=== PATIENT | male | born 1935 | race Caucasian/White ===

== ENCOUNTER → 2020-10-09 | Outpatient (CLI) | payer OTHER ==
[~2020-10-09] VITALS: Ht 177.8 cm; Wt 81.6 kg
[~2020-10-09] MED LIST: ASA81BEC PO; BETIMOL5 ML OPHTHALMIC; FLOMAX0.4 MG PO; LISINOPRIL10 MG PO; PROSCAR 5MG TABL5 MG PO
[2020-10-09 08:08] VITALS: BP 164/87
[2020-10-09 08:46] LABS: ABSOLUTE NEUTROPHILS 4.4 thou/uL (1.4-8.2); BASOPHILS 1.2 % (0.0-2.0); EOSINOPHILS 1.2 % (0.0-3.0); HEMATOCRIT 44.6 % (42.0-52.0); HEMOGLOBIN 14.7 gm/dL (14.0-18.0); LYMPHOCYTES 25.7 % (24.0-44.0); MCH 31.6 pg (26.0-34.0); MCHC 32.9 g/dL (28.0-37.0); MONOCYTES 9.2 % (1.0-8.0); PLATELET COUNT 242 thou/uL (150-400); POLYS 62.7 % (36.0-66.0); RBC 4.64 mil/uL (4.50-6.00); RDW 14.4 % (10.5-14.5); WBC 7.1 thou/uL (4.0-11.0)
[2020-10-09 08:56] LABS: CALCIUM 9.5 mg/dL (8.5-10.1); CREATININE 1.4 mg/dL (0.7-1.3); POTASSIUM 3.9 mmol/L (3.5-5.1)
[2020-10-09 09:02] LABS: ALBUMIN 3.8 g/dL (3.4-5.0); TOTAL BILIRUBIN 0.5 mg/dL (0.2-1.0); TOTAL PROTEIN 7.3 g/dL (6.4-8.2)
[2020-10-09 09:09] LABS: APTT 24.6 Seconds (24.5-32.8); PROTIME 9.9 Seconds (9.3-11.4)
--- NOTE | 2020-10-09 14:23 | EKG ---
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[facility] : 1935 Requested By: Shade Hua Order Number: [id number] : Duke Armenta Measurements Intervals [place] Rate: 60 P: -37 CO: 159 QRS: -73 QRSD: 157 T: 91 QT: 439 QTc: 439 Interpretive Statements Atrial-ventricular dual-paced rhythm No further analysis attempted due to paced rhythm No previous ECG available for comparison Electronically Signed On 10-09-2020 14:23:35 CDT by Duke Armenta [email or web address] <ELECTRONICALLY SIGNED> By: Duke Armenta MD, [facility] 10/09/20 1423 0824 3 Duke Armenta MD, FACC /EPI
--- NOTE | 2020-10-09 14:23 | EKG ---
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[facility] : 1935 Requested By: Tej Aguilar Order Number: [id number] MD: Duke Armenta Measurements Intervals [place] Rate: 63 P: -20 SD: 153 QRS: -72 QRSD: 157 T: 88 QT: 440 QTc: 451 Interpretive Statements Atrial-ventricular dual-paced complexes No further analysis attempted due to paced rhythm Compared to ECG 10/09/2020 08:24:35 No significant changes Electronically Signed On 10-09-2020 14:23:36 CDT by Duke Armenta [email or web address] <ELECTRONICALLY SIGNED> By: Duke Armenta MD, [facility] 10/09/20 1423 1020 1020 Duke Armenta MD, FAC /EPI
[2020-10-09 14:58] LABS: URINE BILIRUBIN NEGATIVE (Negative); URINE BLOOD NEGATIVE (Negative); URINE CLARITY CLEAR; URINE COLOR YELLOW; URINE GLUCOSE-RANDOM* NEGATIVE (Negative); URINE KETONES NEGATIVE (Negative); URINE LEUKOCYTES-REFLEX NEGATIVE (Negative); URINE NITRITE-REFLEX NEGATIVE (Negative); URINE PROTEIN (DIPSTICK) NEGATIVE (Negative); URINE SPECIFIC GRAVITY 1.015 (1.005-1.035); URINE UROBILINOGEN 0.2 E.U./dl (0.2-1.0)
== END | disposition home or self-care (01) ==
LOC: CATH 07:31
PROVIDERS: Physician Assistant; ATTEND Nuclear Medicine Nuclear Cardiology
DX: I71.4 Abdominal aortic aneurysm, without rupture (principal); I70.1 Atherosclerosis of renal artery; I10 Essential (primary) hypertension; E78.5 Hyperlipidemia, unspecified; I25.10 Atherosclerotic heart disease of native coronary artery without angina pectoris; F17.210 Nicotine dependence, cigarettes, uncomplicated; Z98.890 Other specified postprocedural states; Z79.899 Other long term (current) drug therapy; Z95.0 Presence of cardiac pacemaker

== ENCOUNTER → 2020-10-20 | Outpatient (CLI) | payer OTHER ==
[~2020-10-20] MED LIST changes: +PROSCAR 5MG TABL5 M1 PO
== END ==
LOC: LAB 11:17
PROVIDERS: ATTEND Surgery Vascular Surgery
DX: Z01.812 Encounter for preprocedural laboratory examination (principal); Z20.822 Contact with and (suspected) exposure to COVID-19

== ENCOUNTER 2020-10-23 08:14 | Inpatient (IN) | payer OTHER ==
[~2020-10-23] VITALS: Ht 152.4 cm; Wt 81.6 kg
--- NOTE | ~2020-10-23 | HC ---
[facility] [place] [address] CONSULTATION Name: BERMEOSAVANNAH Room #: 215-P ADM IN M.R.#: [id number] Admission: 10/23/20 Attend Phys: Benjie Faulkner MD Discharge: Date of : 36 Report #: [id number] THIS REPORT FOR: cc: Ernesto Quinones MD, Khanh MD Khosla,Gordon Powers MD ~ DATE OF SERVICE: 10/27/2020 HISTORY OF PRESENT ILLNESS: This is an 85-year-old who is unable to provide any history. The patient tried to talk, but his speech is barely understandable. I talked to the nurse looking after this patient and reviewed the records in the computer. It looks like this patient has abdominal aorta surgery, but he is not doing well. He had elevated creatinine when he came in and looks like he was encephalopathic even that time. He does have some other metabolic problems like sodium of 148. REVIEW OF SYSTEMS: A 14-point review of system was carried out in this patient. He has a history of coronary artery disease. He has a permanent pacemaker as I understand from the nurses. The pacemaker is MRI compatible and they are trying to arrange an MRI in this patient. He is very delirious and multiple medications has been used in this patient. That was his 14-point review of system, which was relevant from the record. PAST MEDICAL HISTORY: Positive for abdominal aneurysm. FAMILY HISTORY: Unavailable. SOCIAL HISTORY: Also unavailable and we will try to reach the family to see if we can get some history from them. PHYSICAL EXAMINATION: Limited. The patient tried to say something, but his voice is not very easily understandable. It looks like he can move all 4 extremities, but very difficult to tell. I cannot do the sensory examination, there does not appear to be any meningeal sign. He does not appear to be in much respiratory difficulty. He is moderately built individual. I think he can hear, but I cannot tell anything more. Blood pressure is 139/79, respirations ____, pulse is 70, temperature is 98.3. LABORATORY DATA: His white count is somewhat high at 11.1. He did have a CT scan, which does not show any acute changes. IMPRESSION: This patient has a severe delirium. I need some more history and I will try to find from the family tomorrow. This patient has a pacemaker. I do not know whether he has any history suggestive of memory problem before and I will try to reach the family. Similarly, I will also try to get any history [facility] [address] [place] [address] CONSULTATION Name: JEAN-CLAUDESAVANNAH Sherman Room #: 215-P [facility] IN M.R.#: [id number] Admission: 10/23/20 Attend Phys: Benjie Faulkner MD Discharge: Date of : 36 Report #: [id number] about alcohol intake. I will check TSH and vitamin B12. We will talk to you tomorrow to see if MRI can be done that will give us more answers. By: 2114 2256 Gordon Martinez MD /nt
[2020-10-23 11:05] VITALS: BP 141/78
--- NOTE | 2020-10-23 19:15 | NUR ---
ASSUMED CARE AT
--- NOTE | 2020-10-23 19:18 | NUR ---
ASSUMED CARE AT 1730, ASSESSMENT AND VITAL SIGNS COMPLETED PER ICU PROTOCOL. PT ARRIVED FROM POST OP BY RNX2. PT SETTLED IN RM 249 IN ICU. RN WILL CONTINUE TO MONITOR.
[2020-10-24] VITALS (31 sets, daily range): BP systolic 90–147; BP diastolic 45–104
[2020-10-24 06:08] LABS: HEMATOCRIT 39.3 % (42.0-52.0); HEMOGLOBIN 12.8 gm/dL (14.0-18.0); MCH 31.2 pg (26.0-34.0); MCHC 32.5 g/dL (28.0-37.0); MCV 96.1 fL (80.0-100.0); RBC 4.09 mil/uL (4.50-6.00); RDW 13.5 % (10.5-14.5); WBC 10.9 thou/uL (4.0-11.0)
[2020-10-24 06:36] LABS: CALCIUM 8.2 mg/dL (8.5-10.1); CREATININE 1.2 mg/dL (0.7-1.3); POTASSIUM 4.4 mmol/L (3.5-5.1)
--- NOTE | 2020-10-24 07:19 | NUR ---
SEE Mysterio FOR ASSESSMENT.PT WAS PLEASANTLY CONFUSED DURING THE NOC, THIS AM SUDDENLY BECAME AGITATED, TRYING TO GET OUT OF BED. NO REDIRECTING. NOTIFIED DR OCHOA. HALDOL IV GIVEN.
[2020-10-24 09:58] LABS: BE(vivo) -4.4 mmol/L (-2 to +3); HCO3 18.5 mmol/L (22.0-26.0); PCO2 28.6 mmHg (35.0-45.0); PO2 68.7 mmHg (80.0-100.0); pH 7.429 (7.360-7.450); sO2 94.5 % (92.0-98.0)
--- NOTE | 2020-10-24 17:57 | NUR ---
SKIPPED ACCUCHECK DUE TO PT RESTING.
--- NOTE | 2020-10-24 18:03 | NUR ---
PT IS NOT PROGRESSING TOWARDS GOALS. VERY ANXIOUS. NOT PERFORMING ADLS. PAIN UNDER CONTROL. WILL CONTINUE TO MONITOR.
--- NOTE | 2020-10-24 20:00 | NUR ---
ASSESSMENT COMPLETED HE ANSWERS TO HI NAME AND STATES HE IS IN THE hOSPITAL. STILL TRYING TO GET OUT OF THE BED. sITTER AT THE BEDSIDE FOR NOW. VSS. WILL CONT TO MONITOR.
--- NOTE | 2020-10-24 20:00 | NUR ---
Assessment completed pt requesting something for p[ain in both groin areas sites are without hematoma's dressing dry and intact. Pain medication given. will cont. to monitor.
--- NOTE | 2020-10-25 | NUR ---
PT much more calmer but still tries to get out of the bed. He does sleep at times. both groin areas dry and intact. vss. Will cont to monitor.
--- NOTE | 2020-10-25 | NUR ---
Noted monitor shows SB pt sleeping. Pt did awaken earlier coing of his rt hand fingers being numb, neuro assessment done, no changes noted.vss will cont to monitor.
[2020-10-25 00:02] VITALS: BP 99/66
--- NOTE | 2020-10-25 03:27 | NUR ---
Report given to oncoming RN.
--- NOTE | 2020-10-25 08:17 | O ---
[facility] [place] [address] OPERATIVE REPORT Name: SAVANNAH BERMEO Room #: 243-P ADM IN M.R.#: [id number] Admission: 10/23/20 Attend Phys: Benjie Faulkner MD Discharge: Date of : 36 Report #: [id number] THIS REPORT FOR: cc: Ernesto Quinones MD, Khanh MD Forman,Benjie Valadez MD ~ DATE OF SERVICE: 10/23/2020 PREOPERATIVE DIAGNOSIS: Abdominal aortic aneurysm. POSTOPERATIVE DIAGNOSIS: Abdominal aortic aneurysm. OPERATION: Stent graft implant for abdominal aortic aneurysm with intraoperative arteriography and angioplasty. SURGEON: Dr. Benjie Faulkner and Dr. Shade Hua. TELETYPEWRITER OPERATOR: JASMIN Casarez. ANESTHESIA: General. INDICATIONS: The patient is an 85-year-old with a large abdominal aortic aneurysm. The patient has anatomy suitable for stent graft implant. FINDINGS AND TECHNIQUE: After general anesthesia was established, incisions were made in both groins to expose the common femoral arteries. A 10,000 units of heparin were given. On each side, Amplatz needle was used followed by guidewire and 18-Botswanan introducer. Through the introducer and over the wire, an exchange catheter was placed and an Amplatz wire was placed on each side. Through the left side, the 12-Botswanan sheath was placed through a femoral cutdown and through the right side the 18-Botswanan sheath was placed through femoral artery cutdown. Through the main body, selected was a 28 x 14 x 16 device. This was placed up the right side. Through the left side, the visceral catheter was used to identify the lowest, the left, renal artery and Storq wire was used to gain better access and the guide catheter was placed at the origin of the renal artery. This allowed us to position the main body accurately just below the origin of the lowest renal artery. The main body was opened with the contralateral gate anteriorly. Contralateral gate was accessed and then our position within the main body was ascertained by [facility] [address] [place] [address] OPERATIVE REPORT Name: SAVANNAH BERMEO Room #: 243-P [facility] IN M.R.#: [id number] Admission: 10/23/20 Attend Phys: Benjie Faulkner MD Discharge: Date of : 36 Report #: [id number] placing a pigtail catheter using the spin technique. The pigtail catheter was a marked catheter and this was used with the information gained from sheath arteriogram on the left side, identified the left hypogastric artery. This allowed us to select an 18 mm x 14 iliac component. This was placed satisfactorily in the main gate and ending just above the hypogastric artery takeoff on the left. The remainder of the main body was deployed into the right iliac. When both devices had been deployed, the compliant balloon was placed up first to the left side, then on the right side to fully deploy the devices and set the proximal active fixation. There had been some sense that there was a narrowing in the proximal left common iliac and indeed the graft appeared to be a bit narrow at that point and an angioplasty was done using a 12 x 2 balloon of the left common iliac within the graft. With all of the devices fully deployed and the angioplasty complete, final arteriogram was taken and this showed good position of the graft with no evidence of any leak. Satisfied with the graft position, the dilators were replaced into the sheaths. Sheaths and dilators were removed and then the stiff wires were removed on each side. The femoral cutdown was repaired with interrupted 4-0 Prolene. Flow was reestablished with return of good distal pulses. Protamine was given to reverse the heparin. When hemostasis was satisfactory, the groin wounds were closed in layers and the patient was taken to the recovery area in good condition. All counts reported as correct. <ELECTRONICALLY SIGNED> By: Benjie Faulkner MD 10/25/20 0817 [id number] 0807 Benjie Faulkner MD /nt
[2020-10-25 12:45] VITALS: BP 129/43
[2020-10-25 15:15] VITALS: BP 138/66
--- NOTE | 2020-10-25 18:24 | NUR ---
PT NOT PROGRESSING TOWARDS GOALS.
[2020-10-25 20:15] VITALS: BP 164/97
[2020-10-26 04:45] VITALS: BP 159/86
[2020-10-26 05:03] LABS: HEMOGLOBIN 12.2 gm/dL (14.0-18.0); MCH 31.4 pg (26.0-34.0); MCV 94.9 fL (80.0-100.0); RBC 3.9 mil/uL (4.50-6.00); RDW 13.8 % (10.5-14.5); WBC 11.1 thou/uL (4.0-11.0)
[2020-10-26 05:13] LABS: ALBUMIN 2.7 g/dL (3.4-5.0); CALCIUM 8.6 mg/dL (8.5-10.1); POTASSIUM 3.6 mmol/L (3.5-5.1); TOTAL BILIRUBIN 0.6 mg/dL (0.2-1.0)
[2020-10-26 05:18] LABS: CREATININE 2.6 mg/dL (0.7-1.3)
--- NOTE | 2020-10-26 07:41 | NUR ---
PATIENTS CARES WERE ASSUMED AT SHIFT CHANGE. PATIENT WAS ASSESSED AND MEDS WERE PASSED. PATIENT IS N RESTRAINTS. PATIENTWAS PLACED IN A CONDOM CATH FOR COMFORT DUE TO HIS INCONTINENT. ROUNDS WERE MADE. THE BED ALARM IS ON.
[2020-10-26 08:00] VITALS: BP 157/76
--- NOTE | 2020-10-26 08:53 | NUR ---
ASSUMED PT CARE AT 0700. PT REMAINS ALTERED REQUIRING RETRAINTS DUE TO PULLING OFF MEDICAL EQUIPMENT AND INTERFERRING WITH MEDICAL TREATMENT. PT IS AXO TO SELF. ASSESSMENT PERFORMED CHARTED. VSS. WILL CONTINUE TO MONITOR AND FOLLOW POC.
--- NOTE | 2020-10-26 10:49 | NUR ---
PT/OT ATTEMPTING TO WORK WITH PATIENT. PT OPENS EYES TO VOICE. PT UNABLE TO FOLLOW COMMANDS OF PT/OT.
--- NOTE | 2020-10-26 11:56 | NUR ---
PT TURNED WITH ORAL CARE PROVIDED. ASSESSMENT PERFORMED CHARTED. VSS. PT REMAINS ALERT TO SELF ONLY AND UNABLE TO FOLLOW COMMANDS. WILL CONTINUE TO MONITOR AND FOLLOW POC.
[2020-10-26 12:00] VITALS: BP 148/82
--- NOTE | 2020-10-26 16:32 | NUR ---
PT RESTING, PT REMAINS NOT FOLLOWING COMMANDS. ALERT TO SELF ONLY. PT REPOSITIONED, ORAL CARE PROVIDED. VSS. WILL CONTINUE TO MONITOR AND FOLLOW POC.
--- NOTE | 2020-10-26 16:39 | NUR ---
patient had AAA and possible delirum. Patient orientated to self. Sp with dtr. Patient resides at home with dtr. She reports all needs on one level. patient uses a cane for ambulation. Patient rec HH from [facility] [employer] [facility]. Dtr works during day and reports patient watches TV or sleeps most of the day. He microwaves meals. Plan to update [facility]. Casemgt following.
[2020-10-26 17:56] LABS: URINE BILIRUBIN NEGATIVE (Negative); URINE BLOOD 2+ (Negative); URINE CLARITY CLEAR; URINE COLOR YELLOW; URINE GLUCOSE-RANDOM* NEGATIVE (Negative); URINE KETONES NEGATIVE (Negative); URINE LEUKOCYTES NEGATIVE (Negative); URINE NITRITE NEGATIVE (Negative); URINE PROTEIN (DIPSTICK) NEGATIVE (Negative); URINE UROBILINOGEN 0.2 E.U./dl (0.2-1.0)
[2020-10-26 18:02] LABS: PROT/CREAT RATIO 0.2; URINE PROTEIN-RANDOM* 27.2 mg/dL (<11.9)
[2020-10-26 18:04] LABS: BACTERIA None Seen /HPF (None Seen); CRYSTALS None Seen /LPF (None Seen); SQUAMOUS None Seen /LPF (0-3); URINE RBC 0-2 Rare /HPF (0-2); URINE WBC None Seen /HPF (0-5)
[2020-10-26 20:09] VITALS: BP 164/79
[2020-10-27 04:56] VITALS: BP 163/89
[2020-10-27 05:16] LABS: ALBUMIN 2.5 g/dL (3.4-5.0); ANION GAP 15 mmol/L (7-16); BUN 25 mg/dL (7-18); CALCIUM 8.3 mg/dL (8.5-10.1); CHLORIDE 114 mmol/L (98-107); CO2 19 mmol/L (21-32); GLUCOSE 88 mg/dL (74-106); MAGNESIUM 1.9 mg/dL (1.8-2.4); PHOSPHORUS 2.6 mg/dL (2.5-4.9); POTASSIUM 3.6 mmol/L (3.5-5.1); SODIUM 148 mmol/L (136-145); TROPONIN-I <0.06 ng/mL (<0.06)
--- NOTE | 2020-10-27 05:34 | NUR ---
PATIENTS CARES WERE ASSUMED AT SHIFT CHANGE. PATIENT WAS ASSESSED AND MEDS WERE PASSED. PATIENT CONTINUES TO BE ALERT ONLY TO HIMSELF. HE WILL DISPLAY EPISODES OF ANXIETY FROM TIME TO TIME, A NEW IV STARTED THIS SHIFT IN THE RIGHT HAND 22g. ROUNDS WERE DONE . THE BED ALARM HAS BEEN ON ALL THIS SHIFT.
[2020-10-27 08:00] VITALS: BP 145/65
--- NOTE | 2020-10-27 09:15 | NUR ---
PT LETHARGIC THIS AM, SLURRED AND INCOMPREHENSIBLE SOUNDS. PT NOTED WITH LEFT SIDED WEAKNESS, UNABLE TO DRINK OUT OF A STRAW. PT RESTRAINTS REMOVED AT THIS TIME AND TURNED. ORAL CARE PROVIDED AND MD NOTIFIED OF COGNITIVE CHANGES. SPEECH AND NEURO EVALED. WILL CONT TO MONITOR
[2020-10-27 11:54] VITALS: BP 153/79
--- NOTE | 2020-10-27 13:00 | NUR ---
PT MORE ALERT THIS AFTERNOON, STILL DROWSY BUT ABLE TO UNDERSTAND SOME COMMUNICATION. PT TRYING TO GET OUT OF BED AND PULL OFF LEADS. REDIRECTED AND TOILETED, PT RESTING IN BED. WILL CONT TO MONITOR
[2020-10-27 16:00] VITALS: BP 170/79
--- NOTE | 2020-10-27 17:55 | NUR ---
PT MORE ALERT THIS EVENING ABLE TO COMPREHEND WHAT PT IS SAYING IN CONVERSATIONS, LEFT SIDED WEAKNESS HAS IMPROVED, PT ABLE TO SWALLOW WELL AND GAG REFLEX PRESENT. DINNER ATE WITH NURSE ASSIST. PT IS SITTING IN BED AT THIS TIME WATCHING TV.
[2020-10-27 19:38] VITALS: BP 139/79
[2020-10-28 03:39] VITALS: BP 164/79
[2020-10-28 06:06] LABS: ALBUMIN 2.4 g/dL (3.4-5.0); CALCIUM 8.6 mg/dL (8.5-10.1); CREATININE 1.8 mg/dL (0.7-1.3); PHOSPHORUS 2.4 mg/dL (2.5-4.9); POTASSIUM 3.1 mmol/L (3.5-5.1)
[2020-10-28 07:30] VITALS: BP 140/60
--- NOTE | 2020-10-28 07:51 | NUR ---
[facility] 1900. PT/VITALS STABLE. NO PAIN NOTED. PT A/O TO PERSON ONLY. CONFUSION/ IMPULSIVENESS NOTED WELL. PT CAN MODERATELY BE REDIRECTED. NO DISTRESS NOTED THROUGH THE SHIFT. VPACED/AV PACED ON MONITOR. ASSESSMENT CHARTED. PROGRESSING MODERATELY WITH POC. PLAN IS POSSIBLE DISCHARGE TO REHAB WITHIN A FEW DAYS FOR CONTINUM OF CARE
[2020-10-28 11:25] VITALS: BP 151/60
--- NOTE | 2020-10-28 15:00 | NUR ---
PT ALERT TO SELF ONLY. VSS. IVF INFUSING PER ORDER. PT HAS PACEMAKER. PT DENIES PAIN/SOA. PT HAS REFUSED MOST OF HIS PO MEDS. PT HAS POOR APPETITE TODAY. PT WORKED WELL WITH PT THIS MORNING WAS UP IN THE CHAIR. PT SON AT BEDSIDE TODAY. WILLL CONTINUE TO MONITOR.
[2020-10-28 15:30] VITALS: BP 145/88
[2020-10-28 20:12] VITALS: BP 155/76
[2020-10-29 04:00] VITALS: BP 140/74
--- NOTE | 2020-10-29 04:23 | NUR ---
ASSUMED PT CARE AT AROUND 1900, PT IS SLEEPING, ALERT TO SELF, ASSESSMENTS CHARTED, NO PAIN OR SOB NOTED, PT WAS ABLE TO TAKE A CUP OF APPLE SAUCE AND ZIPS OF NECTAR THICK APPLE JUICE, COMBATIVE WITH CARES AT TIMES, VPACED ON THE MONITOR, PLAN FOR MRI TODAY, NO NEEDS AT THIS TIME, WILL CONTINUE TO MONITOR AND FOLLOW POC
[2020-10-29 06:11] LABS: ALBUMIN 2.4 g/dL (3.4-5.0); CALCIUM 8.7 mg/dL (8.5-10.1); PHOSPHORUS 3.2 mg/dL (2.5-4.9); POTASSIUM 3.8 mmol/L (3.5-5.1)
[2020-10-29 06:20] LABS: CREATININE 3.7 mg/dL (0.7-1.3)
[2020-10-29 08:00] VITALS: BP 110/53; BP 147/66
[2020-10-29 08:55] LABS: HEMATOCRIT 34.9 % (42.0-52.0); HEMOGLOBIN 11.7 gm/dL (14.0-18.0); MCH 31.9 pg (26.0-34.0); MCHC 33.6 g/dL (28.0-37.0); MCV 95.1 fL (80.0-100.0); RBC 3.67 mil/uL (4.50-6.00); RDW 13.7 % (10.5-14.5); WBC 8.2 thou/uL (4.0-11.0)
[2020-10-29 11:30] VITALS: BP 145/78
--- NOTE | 2020-10-29 15:55 | NUR ---
Case discussed with the care team. Pt sleeping most of the day and unable to work with therapy or visit with me. MRI today and lewis in place with labs being montiored for CHENCHO. Biochemistry Technologist spoke with the pt's dtr Pratibha and left message for his son Chaim to discuss possible dc planning needs. Pratibha reports that prior to admission the pt was indep with gait and txs in the home. He was able to let her dogs in and out while she was at work. He helped with some basic housekeeping tasks. She works 8am-4pm 4-5 days a week and he has been able to stay at home on his own. She reports that he was forgetful and did nap during the daytime especially if he was up during the night. He used a cane occasionally. Pt's dtr will be here tomorrow afternoon to visit. She is open to rehab eval and snf referrals but wanted cm to discuss with her older brother Chaim as well. Awaiting call back from Chaim. The pt lives in [place]. Pt's son lives in [place] and was here yesterday. Will f/u with the care team tomorrow. Dtr advised that the pt will likely need 24hr supervision/care at dc and may need rehab/snf vs home with resumption of hh services. [facility] called today to get an update and they can accept for readmission if he improves and is able to return home.
[2020-10-29 16:00] VITALS: BP 152/77
[2020-10-29 16:26] LABS: URINE BILIRUBIN NEGATIVE (Negative); URINE BLOOD 3+ (Negative); URINE CLARITY CLEAR; URINE COLOR YELLOW; URINE GLUCOSE-RANDOM* NEGATIVE (Negative); URINE KETONES NEGATIVE (Negative); URINE NITRITE-REFLEX NEGATIVE (Negative); URINE PROTEIN (DIPSTICK) 2+ (Negative); URINE SPECIFIC GRAVITY 1.025 (1.005-1.035); URINE UROBILINOGEN 0.2 E.U./dl (0.2-1.0)
[2020-10-29 16:28] LABS: URINE LEUKOCYTES-REFLEX 2+ (Negative)
[2020-10-29 16:34] LABS: CASTS None Seen /LPF (None Seen); CRYSTALS None Seen /LPF (None Seen); SQUAMOUS 4-10 Moderate /LPF (0-3); URINE WBC-REFLEX >25 Many /HPF (0-5)
--- NOTE | 2020-10-29 16:52 | NUR ---
PT ON SERVICE WITH [facility] PRIOR TO ADM FAXED CLINICAL UPDATE SPOKE WITH OMAR IN INTAKE SHE RECEIVED UPDATE.
[2020-10-29 19:58] VITALS: BP 126/56
[2020-10-29 20:15] VITALS: BP 126/56
--- NOTE | 2020-10-30 03:33 | NUR ---
assumed pt care at around 1900, pt is drowsy, awake during assessment as would respond to yes or no, denies pain, asessments as charted, meds given as per mar, blood glucose stable, maintained on D5, infusing as per orders, plan for mri today, will continue to monitor and follow poc
[2020-10-30 04:00] VITALS: BP 110/93
[2020-10-30 05:11] LABS: CALCIUM 8.9 mg/dL (8.5-10.1); POTASSIUM 3.4 mmol/L (3.5-5.1)
[2020-10-30 05:25] LABS: CREATININE 1.4 mg/dL (0.7-1.3)
--- NOTE | 2020-10-30 06:13 | NUR ---
care assumed for this pt the night of 11/27 & 11/28, pt had no retrains on both shifts.
[2020-10-30 11:30] VITALS: BP 123/52
--- NOTE | 2020-10-30 11:48 | NUR ---
Pt more awake today and son here visiting. Family to discuss working out 24hr supervision as they do not think the pt will tolerate snf stay at dc. [facility] is evaling and following as well. MRI pending today and neuro here and spoke with pt's son. Family reports that the pt does tend to sleep during the day and be up at night routinely. They would like to have [facility] resumed at dc. Renal labs better today. Family hopes that if MRI is normal, and lewis can be dc'd he can dc home in a few days. Care team updated.
--- NOTE | 2020-10-30 12:02 | NUR ---
[facility] AND UPDATED JERONIMO/MALLIKA THAT PATIENT WILL DISCHARGE THIS OR MONDAY. DISCHARGE ORDERS AND SUMMARY TO BE FAXED AT DISCHARGE. [facility] P [phone]; FAX [phone]; OMAR Menon [phone]
--- NOTE | 2020-10-30 14:30 | NUR ---
Nutrition: Pt with continued poor intake of meals ~7 days now/encephalopathy. REC consideration of Megace to see if assists appetite/intake. Also with folate deficiency. REC folic acid supplementation.
[2020-10-30 15:58] VITALS: BP 103/64
[2020-10-30 15:59] VITALS: BP 103/64
--- NOTE | 2020-10-30 18:46 | NUR ---
ASSUMED CARE OF PT AT SHIFT CHANGE. ASSESSMENTS CHARTED. MEDS GIVEN PER SEP. PT ALERT TO SELF, CONFUSED. BECAME AGITATED IN THE AFTERNOON, PULLING OFF GOWN, TELE LEADS, IVS AND YATES. ZYPREXA GIVEN. PT PULLS ON PENIS, CAUSING THE OOZING OF BLOOD TO CONTINUE. UROLOGY NOTIFIED, WHO ORDERED THE YATES TO BE REPLACE. WILL CONTINUE TO MONITOR FOR CHANGES AND FOLLOW POC.
[2020-10-30 19:57] VITALS: BP 113/69
[2020-10-31] VITALS (8 sets, daily range): BP systolic 101–127; BP diastolic 53–73
--- NOTE | 2020-10-31 05:03 | NUR ---
ASSUMED PT CARE AT CHANGE OF SHIFT, PT IS AGITATED AND IMPULSIVE HAD JUST PULLED HIS YAETS CATHETER AND IV, STILL BLEEDING FROM HIS PENIS, ELECTRO MECHANIC NOTIFIED, ORDERS RECEIVED AND IMPLEMENTED, NEW IV STARTED AND MEDICATIONS GIVEN PER MAR, NO CHNAGES; ORDER FOR RESTRAINS OBTAINED AND NEW YATES INSERTED, 750ML OF BLOODY URINE CAME OUT OF YATES, YATES CATHETER IRRIGATED. STILL HAVING BLOOD TINGED URINE, RESTRAINS IN PLACE; NO NEEDS AT THIS TIME, WILL CONTINUE TO MONITOR AND FOLLOW POC
--- NOTE | 2020-10-31 16:37 | NUR ---
PT CARE ASSUMED AT 0700. ASSESSMENTS CHARTED. MEDICATIONS CHARTED. RH IV. YATES, BLOOD TINGED. V-PACED. ACHS. VERY POOR APPETITE. TAKES MEDICATION POORLY; CRUSHED IN APPLESAUCE.
[2020-11-01] VITALS (7 sets, daily range): BP systolic 110–137; BP diastolic 60–87
--- NOTE | 2020-11-01 00:09 | NUR ---
AROUND 2100 PATIENT BECAME VERY AGITATED AND STARTED PULLING AT RESTRAINTS AND SCREAMING OUT. NURSE MEDICATED WITH PRN ZYPREXA IM SHOT TO GOOD AFFECT. PATIENT RESTING PEACEFULLY IN BED. NURSE TO CONTINUE TO MONITOR PATIENTS NEURO STATUS.
--- NOTE | 2020-11-01 17:11 | NUR ---
PT CARE ASSUMED AT 0700. ASSESSMENTS CHARTED. MEDICATIONS CHARTED. LH IV. AV PACED; PACEMAKER. YATES; DK YELLOW. RESTRAINTS. DR JAMES D/C'D OLANZAPINE, QUETIAPINE AND ULTRAM. DR BLOCK ADDED ATIVAN AND DIVALPROEX DR HARTMANN FOR PT AGITATION.
--- NOTE | 2020-11-01 21:28 | HC ---
[facility] [place] [address] CONSULTATION Name: SAVANNAH BERMEO Room #: 215-P ADM IN M.R.#: [id number] Admission: 10/23/20 Attend Phys: Keenan Andres MD Discharge: Date of : 36 Report #: [id number] THIS REPORT FOR: cc: Ernesto Quinones MD, Khanh MD Al-Absi,Paul Barrera MD ~ DATE OF SERVICE: 10/27/2020 REASON FOR CONSULTATION: Elevated creatinine. HISTORY OF PRESENT ILLNESS: Very limited given the patient's current mental status. He is very confused. He is an 85-year-old with past medical history of hypertension. He was found on the previous CT angiogram to have an abdominal aortic aneurysm. He was admitted for repair of his abdominal aortic aneurysm. This was a 4.5 cm infrarenal aneurysm. The patient is very confused and not able to provide me with any details. The patient's creatinine prior to the procedure was 1.5 back in September. Creatinine has peaked around 2.6 as of yesterday. Creatinine is now beginning to trend down. I was consulted to manage his acute kidney injury. PAST MEDICAL HISTORY: Very limited per medical record. Abdominal aortic aneurysm. ALLERGIES: PENICILLIN PER MEDICAL RECORD. CURRENT MEDICATIONS: Per medical record. Acetaminophen Flomax, Proscar, Seroquel. FAMILY HISTORY: Unobtainable given the patient's current mental status. SOCIAL HISTORY: Unobtainable given the patient's current mental status. REVIEW OF SYSTEMS: Unobtainable given the patient's current mental status. PHYSICAL EXAMINATION: GENERAL: Blood pressure is 163/89, temperature 36.8. HEAD AND NECK: No jugular venous distention. CHEST: No crackles. CARDIOVASCULAR: No rub detected. ABDOMEN: Soft. EXTREMITIES: Lower extremities, no edema. LABORATORY DATA: Sodium is 148, chloride of 114, carbon dioxide of 19, creatinine is down to 2 from 2.6 as of yesterday. [address] [address] CONSULTATION Name: SAVANNAH BERMEO Room #: [facility]#: [id number] Admission: 10/23/20 Attend Phys: Keenan Andres MD Discharge: Date of : 37 Report #: [id number] ASSESSMENT, IMPRESSION AND PLAN: 1. Acute kidney injury. 2. Hyponatremia. 3. Acute mental status changes. 4. Status post repair of his abdominal aortic aneurysm. 5. Encephalopathy. 6. The patient's creatinine seems to be improving. 7. Switch IV fluid to address his acidosis and his hyponatremia. 8. Avoid further nephrotoxic medications. 9. Expect his kidney to fully recover to his base function to fully recover to his baseline. <ELECTRONICALLY SIGNED> By: Paul Saleem MD 11/01/20 2128 [id number] Paul Saleem MD /nt
[2020-11-02 04:30] VITALS: BP 141/67
[2020-11-02 08:00] VITALS: BP 123/64
--- NOTE | 2020-11-02 08:12 | NUR ---
ATIVAN PO GIVEN AT THE BEGINNING OF THE SHIFT.ON BILATERAL SOFT WRIST.NO PAIN.MONITOR SHOWS AV PACED.POC CONTINUED.
[2020-11-02 10:41] LABS: CALCIUM 8.8 mg/dL (8.5-10.1); CREATININE 1.1 mg/dL (0.7-1.3); POTASSIUM 3.7 mmol/L (3.5-5.1)
[2020-11-02 12:03] VITALS: BP 115/61
--- NOTE | 2020-11-02 13:53 | NUR ---
spoke with dtr at bedside. Discussed [facility] not accepting of patient. [facility] reports patient likely need longer rehab stay than [facility] los. Patient may need memory care unit. Dtr reports she has post acute care list. She reports she needs to sp with her brother. Dtr later called and reports she sp with her brother and interest in [facility]. DC assortment planner to send referral.
--- NOTE | 2020-11-02 14:16 | NUR ---
FAXED CLINICAL UPDATE TO [email or web address] RECEIVED CONFIRMATION AND SPOKE WITH OMAR IN INTAKE AT [email or web address] .
--- NOTE | 2020-11-02 15:12 | NUR ---
Nutrition: RD starting calorie count. Poor oral intake >1 week. Folic acid deficiency-rec supplement. Consider Megace? Oral supplements are provided. Confusion/agitation persist. Consider start Clinimix PPN in place of IVFs to assist with nutrition unless pt would tolerate dobhoff placement. Will followup on calorie count 11/03
[2020-11-02 16:00] VITALS: BP 122/94
--- NOTE | 2020-11-02 17:01 | NUR ---
Spoke with RN practioner this am regarding [facility] eval. Not a candidate more appropriate for snf. Sp with dtr this am and discussed. She plans to discuss with her brother. She returned call and reports interest in [facility]. Patient cont on restraints. Referral faxed to [facility] for review.
--- NOTE | 2020-11-02 18:04 | NUR ---
RECEIVED PT'S CARE AROUND 07; PT. ON BED; ALERT; ON RESTRAINS; AVPACED ON THE MONITOR; DURING AM ASSESSMENT PT. RESTLESS; DAUGHTER AT THE BED SIDE; ALERT TO PERSON; AM MEDICATION GIVEN AFTER SEVERAL ATTEMPTS BY DAUGHTER; REFUSED BREAKFAST; DURING EARLY EVENING PT. RESTLESS; UNCOOPERATIVE; SHOUTING HE IS GOING HOME; DAUGHTER AT THE BED SIDE IN DISTRESS WHILE TRYING TO EXPLAINED FATHER HE CANNOT GO HOME; RESTAURANT HOSPITALITY MANAGER AT THE BED SIDE; EXPLAINED PT. NOT TO SHOUT DUE TO OTHER PTS ARE TRYING TO HAVE SOME REST; PT. ST. WANTS TO GO HOME; EXPLAINED NEEDS TO GET STRONGER BEFORE GOING HOME; CALMER; RESTAURANT HOSPITALITY MANAGER SUGGESTED DAUGHTER TO WALK AROUND IN ORDER TO DECREASE STRESS; NO ANSWER BACK; PT. COOPERATIVE DURING LUNCH AND DINNER; TURNED FROM SIDE TO SIDE; ASSESSMENT CHARGED; FOLLOWING POC; WILL PASS ON REPORT;
[2020-11-02 20:29] VITALS: BP 132/68
[2020-11-02 21:02] VITALS: BP 124/59
[2020-11-03 05:07] VITALS: BP 117/74
--- NOTE | 2020-11-03 07:16 | NUR ---
PATIENT IS QUIETER TONIGHT BUT STILL AWAKE,EYES WIDE OPEN.TRYING TO REACH ON HIS YATES CATH.ON BILATERAL SOFT WRIST.MONITOR SHOWS AV PACED POC CONTINUED.
[2020-11-03 08:00] VITALS: BP 95/77
[2020-11-03 09:52] LABS: HEMATOCRIT 34.6 % (42.0-52.0); HEMOGLOBIN 11.4 gm/dL (14.0-18.0); MCH 31.1 pg (26.0-34.0); MCV 94.3 fL (80.0-100.0); RBC 3.67 mil/uL (4.50-6.00); RDW 13.7 % (10.5-14.5); WBC 6.9 thou/uL (4.0-11.0)
[2020-11-03 10:16] LABS: CALCIUM 9.1 mg/dL (8.5-10.1); CREATININE 1.2 mg/dL (0.7-1.3); POTASSIUM 3.6 mmol/L (3.5-5.1)
[2020-11-03 12:38] VITALS: BP 94/58
--- NOTE | 2020-11-03 13:41 | NUR ---
Day 1 calorie count: pt met 37% abeba and 63% protein needs. Will eat fairly well as long as not agitated. Requires feed assist from staff. Continue to offer ensure pudding and magic cups. Mix beneprotein in small amounts of food to dissolve.
--- NOTE | 2020-11-03 13:43 | NUR ---
Dr Mike sp with dtr plan dc home in am with home health care. patient on service with Darryl ALLEN sea captain. DC harvesting manager to alert to home health care of start of service in am. Sp with dtr. Discussed need stretcher transport home. Dtr discussed leaving back door open for home health care when she works on . Discussed patient needs 24/ supervision at home at this time. Dtr in agreement and will have her brother assist at home.
[2020-11-03 16:00] VITALS: BP 93/77
[2020-11-03 19:59] VITALS: BP 113/56
--- NOTE | 2020-11-03 20:09 | NUR ---
RECEIVED PT'S CARE AROUND 0720; PT. ON BED; RESTING WITH EYES CLOSED; AV PACED ON THE MONITOR; DURING AM ASSESSMENT PT. SHOUTING; REFUSING BREAKFAST; ALERT TO PERSON; AM MEDICATIONS GIVEN; ST. NOT HAVING PAIN; DURING DR. OLIVARES ROUNDING UPDATED ABOUT REASON OF IV FLUIDS; ORDERS ON PLACED; D/C IV FLUIDS; PER DR. OLIVARES D/C YATES; NOTIFIED YATES INSERTED DUE TO RETENTION AND UROLGIST ON THE CASE; PER UROLOGIST NOTES D/C YATES PN 11/07/20; DR. 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 [facility]; D/C FOELY AT 1240; D/C RESTRAINS; THROUGH THE AFTERNOON PT. RESTLESS; SHOUTING NAMES; REPOSITIONED ON BED SEVERAL TIMES; DURING THE EVENING TRYING TO KICK AND PUNCH HELICOPTER REPAIRER WELL NURSE WHILE CHANGING HIM; EDUCATED ABOUT BEING RESPECTFUL WITH STAFF; REFUSED EDUCATION; NO VOIDING DURING THE AFTERNOON; BLADDER SCANNER SHOWED 39 ML; MONITORING; PASSED ON REPORT; ASSESSMENT CHARGED; FOLLOWING POC; PASSED ON REPORT;
[2020-11-04 04:15] VITALS: BP 110/68
[2020-11-04 07:55] VITALS: BP 112/84
--- NOTE | 2020-11-04 08:24 | NUR ---
ASSUME CARE 1900. PT/VITALS STABLE. A/O TO PERSON ONLY. PT STILL LISA CONFUSED AND MILDLY COMBATIVE. NEEDS REDIRECTION FREQUENTLY. ASSESSMENT CHARTED. POOR PROGRESS TO POC. AV PACED ON MONITOR. URINARY RETENTION NOTED. BLADDER SCAN > 639ML. STRAIGHT CATH X 1 WITH 750ML OUT. PLAN IS POSSIBLE DISCHARGE WITHIN 1-2 DAYS HOME WITH HOME HEALTH. WILL CONTINUE TO MONITOR AND FOLLOW WITH POC
[2020-11-04] MEDS ORDERED: CLOPIDOGREL75 MG PO (08:26)
[2020-11-04] MEDS ORDERED: DEPAKOTE SPRIN125 MG PO (08:26)
[2020-11-04 11:59] VITALS: BP 126/90
[2020-11-04 12:02] VITALS: BP 103/64
--- NOTE | 2020-11-04 12:42 | NUR ---
ASSUMED CARE OF PT AT 0700, PT DOES NOT FOLLOW COMMANDS, IS COMBATIVE WHEN GIVING CARES AND JUST MOANS. UROLOGY WAS AT BEDSIDE AT 0830 AND WANTS A YATES PLACED FOR RETENTION AND WANTS HIM TO FOLLOW UP WITH THEM IN THE NEXT WEEK OR TWO. YATES WAS PLACES AND PT CONTINUES TO UNDRESS HIMSELF AND PULL ON THE YATES. UNSURE IF YATES WILL STAY IN PLACE FOR THE NEXT WEEK OR TWO
--- NOTE | 2020-11-04 13:28 | NUR ---
PT DISCHARGING TODAY TO HOME WITH [facility] FAXED DC ORDERS/SUMMARY SPOKE WITH OMAR IN INTAKE SHE RECEIVED ORDERS AND WILL ARRANGE VISITS WITH PT.
[2020-11-04 14:48] VITALS: BP 100/72
--- NOTE | 2020-11-04 15:13 | NUR ---
Spoke with dtr. Confirmed plan for home with HH. Patient to dc with a lewis. Dtr aware patient to dc home with lewis. Requested RN call dtr to discuss dc instructions. Sheldon gunn for 1500 to home. verified address. brien ALLEN arranged by dc master planner.
--- NOTE | 2020-11-05 10:53 | NUR ---
SKILLED REFERRALS SENT TO [facility]. PATIENT WILL NEED TO BE TRANSFERRED FROM HOME TO THE FACILITY. [facility] P [phone]; FAX [phone]; NATHAN/MALLIKA PEREZ [facility]BER[facility] P [phone]; FAX [phone]; JEANNE [phone]
--- NOTE | 2020-11-05 13:34 | NUR ---
Call back rec'd from pt's dtr Arline and son Chaim. They indicate they are overwhelmed with pt's care at home and do not feel they can provide 24hr care even with hh support. They request assistance with snf and possible ltc placement. Options reveiwed. [facility] and [facility] selected and the pr capacity planner faxed referrals to both. Sample Room Supervisor spoke with both admissions liasons and [facility] can accept for both skilled medicare stay and terminal operations manager care. [facility] was still reveiwing but advised they do not have any ltc beds. Family updated and they elected placement at [facility] [place]. The HH RN was also there at the home and supportive of their decision. [id number] signed by the attending and faxed to the [facility] liason as well. The liason will f/u with pt's children and coordinate stretcher transport to their [facility] building this afternoon.
== END 2020-11-04 16:44 | disposition home health service (06) | DRG 268 ==
LOC: OR 08:14 → 2N 08:20 → TBA 08:20 → ICU 17:42 → 2N 10-25 13:00
PROVIDERS: Hospitalist; Internal Medicine Nephrology; Nurse Practitioner; Physician Assistant; Psychiatry & Neurology Neuromuscular Medicine; ADMIT Surgery Vascular Surgery; ATTEND Hospitalist
DX: I71.4 Abdominal aortic aneurysm, without rupture (principal); N17.0 Acute kidney failure with tubular necrosis; G93.41 Metabolic encephalopathy; E43 Unspecified severe protein-calorie malnutrition; E87.1 Hypo-osmolality and hyponatremia; D62 Acute posthemorrhagic anemia; E87.3 Alkalosis; E87.0 Hyperosmolality and hypernatremia; E87.2 Acidosis; S37.30XA Unspecified injury of urethra, initial encounter; N39.0 Urinary tract infection, site not specified; R41.0 Disorientation, unspecified; I25.10 Atherosclerotic heart disease of native coronary artery without angina pectoris; F03.90 Unspecified dementia, unspecified severity, without behavioral disturbance, psychotic disturbance, mood disturbance, and anxiety; I10 Essential (primary) hypertension; E87.6 Hypokalemia; R13.10 Dysphagia, unspecified; N13.9 Obstructive and reflux uropathy, unspecified; R33.9 Retention of urine, unspecified; R53.81 Other malaise; E53.8 Deficiency of other specified B group vitamins; X58.XXXA Exposure to other specified factors, initial encounter; Y93.89 Activity, other specified; Y92.89 Other specified places as the place of occurrence of the external cause; Y99.8 Other external cause status; Z88.0 Allergy status to penicillin; Z79.82 Long term (current) use of aspirin; Z79.899 Other long term (current) drug therapy; Z85.038 Personal history of other malignant neoplasm of large intestine; Z92.3 Personal history of irradiation; Z98.42 Cataract extraction status, left eye; Z98.41 Cataract extraction status, right eye; Z95.5 Presence of coronary angioplasty implant and graft; Z95.0 Presence of cardiac pacemaker; Z71.6 Tobacco abuse counseling; Z68.35 Body mass index [BMI] 35.0-35.9, adult
CPT/HCPCS: 10078; 10081; 47375; 48889; 50101; 50386; 50455; 52287; 54118; 56524; 56526; 56531; 56668; 56760; 57093; 62110; 62900; 65020; 70005

== ENCOUNTER → 2020-11-24 | Outpatient (CLI) | payer OTHER ==
[~2020-11-24] MED LIST changes: +CLOPIDOGREL75 MG PO; +DEPAKOTE SPRIN125 MG PO
== END ==
LOC: CAT 12:27 → SJCVCIMAG 12:27
PROVIDERS: ATTEND Nuclear Medicine Nuclear Cardiology
DX: I65.23 Occlusion and stenosis of bilateral carotid arteries (principal); I71.4 Abdominal aortic aneurysm, without rupture; I77.9 Disorder of arteries and arterioles, unspecified; I25.10 Atherosclerotic heart disease of native coronary artery without angina pectoris; I10 Essential (primary) hypertension; E78.00 Pure hypercholesterolemia, unspecified; M47.814 Spondylosis without myelopathy or radiculopathy, thoracic region; K76.89 Other specified diseases of liver; N28.1 Cyst of kidney, acquired; N40.0 Benign prostatic hyperplasia without lower urinary tract symptoms; F17.200 Nicotine dependence, unspecified, uncomplicated; Z98.890 Other specified postprocedural states; Z95.820 Peripheral vascular angioplasty status with implants and grafts; Z95.5 Presence of coronary angioplasty implant and graft; Z88.0 Allergy status to penicillin; Z79.82 Long term (current) use of aspirin; Z79.899 Other long term (current) drug therapy; Z82.49 Family history of ischemic heart disease and other diseases of the circulatory system